=== PATIENT | male | born 1975 | race Caucasian/White ===

== ENCOUNTER 2023-09-25 06:25 | Day surgery (SDC) | payer OTHER ==
[2023-09-25] MEDS ORDERED: Dextrose 5%-0.45% NaCl 1,000 ML IV SCH (06:30)
[2023-09-25] MEDS ORDERED: Midazolam 1 MG/ML 2 ML SDV ONE (07:49)
[2023-09-25] MEDS ORDERED: fentaNYL 100 MCG/2 ML SDV ONE (07:49)
[2023-09-25] MEDS ORDERED: fentaNYL 100 MCG/2 ML SDV IV ONE ×2 (07:56)
[2023-09-25] MEDS ORDERED: Midazolam 1 MG/ML 2 ML SDV IV ONE ×6 (07:57→08:03)
== END 2023-09-25 09:21 | disposition home or self-care (01) ==
LOC: DL.ENDO 06:25
PROVIDERS: ATTEND Internal Medicine Gastroenterology
DX: Z12.11 Encounter for screening for malignant neoplasm of colon (principal); K57.30 Diverticulosis of large intestine without perforation or abscess without bleeding; K64.4 Residual hemorrhoidal skin tags; K21.9 Gastro-esophageal reflux disease without esophagitis; Z87.891 Personal history of nicotine dependence; Z98.890 Other specified postprocedural states
CPT/HCPCS: 45378; J2250; J3010; J7042